=== PATIENT | male | born 1945 | race Caucasian/White ===

== ENCOUNTER 2017-02-27 23:05 | Inpatient (IN) | payer OTHER, BC ==
[~2017-02-27] VITALS: Ht 180.3 cm; Wt 101.6 kg
--- NOTE | ~2017-02-27 | CATHLAB ---
[facility] [address] [place] [address] INVASIVE PROCEDURE REPORT Name: MILTON BROWN Yoel Room #: 218-P [facility] IN ..#: [id number] Admission: 02/27/17 Attend Phys: Lorene Grimes Discharge: Date of : 47 Date of Service: 03/02/17 0935 Report #: [id number] THIS REPORT FOR: //name// APPROVED REPORT Patient Details Patient Status: In-Patient Room #: The patient is a 71 year-old male Event Personnel Clare Jerez RN Pressing Machine Tender, Reid Canas RN Monitor, Simone Villegas Monitor, Pj Ambrocio, Priyank De Leon Store Protection Specialist Procedures Performed Art Access - R femoral artery* NICOLASA Place w/wo Plasty Single Left Main [id number] , Right transradial approach Indication Unstable angina , The patient just had a cardiac catheterization revealing a severe left main stenosis. During the diagnostic cardiac catheterization, he remained clinically stable with no anginal symptoms. The plan was to undergo CABG, wait a few days as he had been taking Plavix on a daily basis. In the ICU, he reported severe chest discomfort on medical therapy including heparin, IV nitroglycerin, beta galen. Given the change in his clinical symptoms, the plan was to proceed with coronary angioplasty on the left main artery stenosis. Previous Procedures/Diagnoses Previous PCI Procedure Narrative The patient was brought emergently to the Cardiac Catheterization Laboratory and was prepped and draped in a sterile manner. The RFG^ was infiltrated with 1% Lidocaine subcutaneous anesthesia. A PINNACLE 6FR Sheath #[id number] sheath was inserted into the . Coronary angiography was performed using coronary diagnostic catheters. The left coronary system was accessed and visualized with a VISTA 6FR JL3.5 #[id number] catheter. The patient tolerated the procedure well and there were no complications associated with the procedure. There was no hematoma. Intraoperative Conscious Sedation Sedation start time: 316 Case end Time: [address] [address] INVASIVE PROCEDURE REPORT Name: MILTON BROWN Room #: 218-P [facility] IN [facility].#: [id number] Admission: 02/27/17 Attend Phys: Lorene Grimes Discharge: Date of : 47 Date of Service: 03/02/17 0935 Report #: [id number] Fluoro Time: 12.30 minutes Dose: DAP 85686.82 cGycm2 2753 mGy Contrast Type and Amount: Visipaque 190 ml Hemodynamics The aortic pressure is 129/74 mmHg with a mean of 94 mmHg. PCI Technique Lesion Anticoagulation was achieved with Angiomax. Patient was preloaded with Effient PO 60 mg. Percutaneous coronary intervention was performed on the LM. The lesion stenosis prior to intervention was 95% with BREANNA 3 flow. A VISTA 6FR JL3.5 #[id number] Guide Catheter was used to engage the LCA ostium. A Luge Wire .014 x 182CM #[id number] Interventional Guidewire was used to cross the lesion. BALLOON DILATION A Balloon catheter TREK RX 3.0 X 12 #[id number] was inserted and inflated up to 10.00atm for 6seconds. Additional Inflation: 10.00atm for 7seconds. STENT DEPLOYMENT A drug-eluting stent RESOLUTE RX 3.5 X 12 #[id number] was inserted and inflated up to 16.00atm for 10seconds. Additional Inflation: 18.00atm for 6seconds. POST STENT DEPLOYMENT BALLOON DILATION A Balloon catheter Euphora NC RX 4.0 x 12 #[id number] was inserted and inflated up to 18.00atm for 6seconds. Final angiography reveals 0 % stenosis with BREANNA 3 flow. Conclusion Successful insertion of a drug-eluting stent into the left main artery stenosis. The patient tolerated the procedure without any complications. Recommendations Cardiac Rehabilitation Referral Aggressive Medical Therapy <ELECTRONICALLY SIGNED> By: Priyank De Leon MD 03/02/17934 4 4 Priyank De Leon MD /INF
--- NOTE | ~2017-02-27 | EKG ---
[address] [place] [address] ELECTROCARDIOGRAM REPORT Name: MILTON BROWN Yoel Room #: 239-P ADM IN M.R.#: [id number] Admission: 02/27/17 Attend Phys: Lorene Chaudhry Discharge: Date of : 47 Report #: [id number] THIS REPORT FOR: //name// [facility] Test Date: 2017-02-28 Test Time: 07:23:01 Pat Name: MILTON BROWN Department: Room: 239 Gender: M Grab Jack Worker: camilo : 1945 Requested By: Priyank De Leon Order Number: [id number] MD: Priyank De Leon Measurements Intervals [place] Rate: 59 P: 15 MD: 205 QRS: -45 QRSD: 122 T: 160 QT: 410 QTc: 407 Interpretive Statements Sinus rhythm Atrial premature complexes RBBB nonspecific ST segment abnormalities Compared to ECG 02/27/2017 23:18:52 ST segment abnormalities have resolved Electronically Signed On 02-28-2017 11:01:21 CDT by Priyank De Leon [email or web address] <ELECTRONICALLY SIGNED> By: Priyank De Leon MD 02/28/17 1101 0723 07 Priyank De Leon MD /JONATHAN
--- NOTE | ~2017-02-27 | EKG ---
[place] [address] [facility] [place] [address] ELECTROCARDIOGRAM REPORT Name: PEDRITO BROWNJOHNNY Diallo Room #: 239-P ADM IN M.R.#: [id number] Admission: 02/27/17 Attend Phys: Lorene Chaudhry Discharge: Date of : 47 Report #: [id number] THIS REPORT FOR: //name// [facility] ED Test Date: 2017-02-27 Test Time: 23:18:52 Pat Name: MILTON BROWN Department: Room: 239 Gender: M Leather Flesher: : 1945 Requested By: Pernell Russell Order Number: [id number] MD: Priyank De Leon Measurements Intervals [place] Rate: 75 P: 30 MA: 203 QRS: 248 QRSD: 137 T: 160 QT: 343 QTc: 383 Interpretive Statements Sinus rhythm Nonspecific IVCD with LAD Repol abnrm, severe global ischemia (LM/MVD) Baseline wander in lead(s) I,II,III,aVR,aVL,aVF,V2,V3,V4,V5,V6 Missing lead(s): V1 Compared to ECG 09/19/2015 08:07:06 Intraventricular conduction delay now present Early repolarization now present Possible ischemia now present T-wave abnormality no longer present Electronically Signed On 02-28-2017 2:13:41 CDT by Priyank De Leon [email or web address] <ELECTRONICALLY SIGNED> By: Priyank De Leon MD 02/28/17 0213 231 Priyank D eLeon MD /EPI
--- NOTE | ~2017-02-27 | EKG ---
"[place] [address] [address] [facility] [place] [address] ELECTROCARDIOGRAM REPORT Name: MILTON BROWN Yoel Room #: 218-P ADM IN M.R.#: [id number] Admission: 02/27/17 Attend Phys: Lorene Chaudhry Discharge: Date of : 47 Report #: [id number] THIS REPORT FOR: //name// [facility] Test Date: 2017-03-01 Test Time: 08:51:18 Pat Name: MILTON BROWN Department: Room: 218 P Gender: M Cleaner Laboratory Equipment: pérez : 1945 Requested By: Priyank De Leon Order Number: [id number] MD: Jesse Paulson Measurements Intervals [place] Rate: 64 P: 13 LA: 173 QRS: -59 QRSD: 134 T: 4 QT: 435 QTc: 449 Interpretive Statements Sinus rhythm RBBB and LAFB Borderline ST depression, lateral leads Baseline wander in lead(s) V4 Compared to ECG 02/28/2017 07:23:01 No significant changes found Electronically Signed On 03-02-2017 8:39:01 CDT by Jesse Paulson [email or web address] <ELECTRONICALLY SIGNED> By: Jesse Paulson MD, [facility] 03/02/17 0839 0851 0851 Jesse Paulson MD, [facility] /EPI"
--- NOTE | ~2017-02-27 | CATHLAB ---
[facility] [address] [place] [address] INVASIVE PROCEDURE REPORT Name: MILTON BROWN Yoel Room #: 218-P [facility] IN [facility].#: [id number] Admission: 02/27/17 Attend Phys: Lorene Grimes Discharge: Date of : 47 Date of Service: 03/02/17926 Report #: [id number] THIS REPORT FOR: //name// ADDENDUM APPROVED REPORT Patient Details Patient Status: Out-Patient Room #: The patient is a 71 year-old male Event Personnel Clare Jerez RN Camera Repairer, Pj Ambrocio, Simone Villegas Monitor, Reid Canas RN Monitor, Priyank De Leon Sewer Pipe Sorter Procedures Performed Art Access - R femoral artery* Left Heart Cath w/or w/o Coronaries [id number] [facility] Indication Non-STEMI , Unstable angina Risk Factors Hypercholesterolemia, Coronary Artery DiseaseHypertension, Diabetes Procedure Narrative The patient was brought emergently to the Cardiac Catheterization Laboratory and was prepped and draped in a sterile manner. The right femoral was infiltrated with 1% Lidocaine subcutaneous anesthesia. A PINNACLE 6FR Sheath #[id number] sheath was inserted into the RFA^. Coronary angiography was performed using coronary diagnostic catheters. The right coronary system was accessed and visualized with a JR 4 catheter. The left coronary system was accessed and visualized with a JL4 catheter. The left ventricle was accessed and visualized with a Pigtail catheter. Left ventricular/Aortic Valve gradient assessed via catheter pullback. Left ventriculogram was performed in 30 degree projection. The patient tolerated the procedure well and there were no complications associated with the procedure. There was no hematoma. Intraoperative Conscious Sedation Sedation start time: 11 Case end Time: 38 Fluoro Time: 3.20 minutes Dose: DAP 5329.72 cGycm2 702 mGy Contrast Type and Amount: Visipaque 85 ml [facility] [place] [address] INVASIVE PROCEDURE REPORT Name: MILTON BROWN Room #: 218-P [facility] IN ..#: [id number] Admission: 02/27/17 Attend Phys: Lorene Grimes Discharge: Date of : 47 Date of Service: 03/02/17 0927 Report #: [id number] Coronary Angiography The patient's coronary anatomy is co- dominant. [place] Artery Percent Stenosis Left Main: 95 % Prox LAD: 30 % Mid/Distal LAD: % Circumflex: % RCA: 30 % Ramus: % Diagnostic Cath OM1 60% ostial Hemodynamics The aortic pressure is 117/75 mmHg with a mean of 93 mmHg. The left ventricular pressure is 108/9 mmHg with a mean of mmHg. The left ventricular end diastolic pressure is 15 mmHg. There was no gradient across the aortic valve upon pullback. Pullback from the left ventricle to the aorta revealed no gradient across the aortic valve. Conclusion Severe LM stenosis Recommend CV surgery consult. Recommendations CABG <ELECTRONICALLY SIGNED> By: Priyank De Leon MD 03/02/17926 6 6 Priyank De Leon MD /INF
--- NOTE | ~2017-02-27 | EKG ---
[address] [place] [address] ELECTROCARDIOGRAM REPORT Name: MILTON BROWN Room #: 218-P ADM IN M.R.#: [id number] Admission: 02/27/17 Attend Phys: Lorene Chaudhry Discharge: Date of : 47 Report #: [id number] THIS REPORT FOR: //name// [facility] Test Date: 2017-02-28 Test Time: 01:30:23 Pat Name: MILTON BROWN Department: Room: 218 Gender: M It Operations Specialist: erik : 1945 Requested By: Lorene Chaudhry Order Number: [id number] MD: Jesse Paulson Measurements Intervals [place] Rate: 65 P: 27 UT: 193 QRS: -67 QRSD: 137 T: 152 QT: 392 QTc: 408 Interpretive Statements Sinus rhythm RBBB and LAFB Abnormal T, consider ischemia, lateral leads when compared with an ECG dated February 27, no significant change was found Electronically Signed On 03-02-2017 7:57:18 CDT by Jesse Paulson [email or web address] <ELECTRONICALLY SIGNED> By: Jesse Paulson MD, [facility] 03/02/17 0757 0130 0130 Jesse Paulson MD, [facility] /EPI
[~2017-02-27 23:05] MED LIST: AMLODIPINE BESY10 MG PO; ASPIRIN325 PO; ATORVASTATIN CA40 MG PO; COLACE100 MG PO; EYE DROP TEARS15 ML OP; HUMALOG KW200 UNIT/1 SUBQ; LANTUS SOL100 UNIT/1 SUBQ; LOSARTAN-HCTZ1 EAC3 PO; LUTEIN20 MG PO; METFORMIN HCL500 MG PO; PLAVIX 75 MG TA75 M1 PO; PROLENSA1.6 ML OP; PROTONIX40 M1 PO; TENORMIN50 MG PO; TYLENOL325 MG PO
[2017-02-27 23:06] VITALS: BP 133/95
[2017-02-27 23:20] LABS: ABSOLUTE NEUTROPHILS 6.9 thou/uL (1.4-8.2); BASOPHILS 0.5 % (0.0-2.0); HEMATOCRIT 42.3 % (42.0-52.0); HEMOGLOBIN 14.8 gm/dL (14.0-18.0); LYMPHOCYTES 12.2 % (24.0-44.0); MCH 31.7 pg (26.0-34.0); MCHC 35.1 g/dL (28.0-37.0); MCV 90.3 fL (80.0-100.0); PLATELET COUNT 200 thou/uL (150-400); POLYS 77.3 % (36.0-66.0); RBC 4.68 mil/uL (4.50-6.00); RDW 14.5 % (10.5-14.5); WBC 8.9 thou/uL (4.0-11.0)
[2017-02-27 23:24] LABS: MANUAL DIFF NO
[2017-02-27] MEDS ORDERED: CRESTOR10 MG PO (23:28)
[2017-02-27 23:30] LABS: CREATININE 1.7 mg/dL (0.7-1.3)
[2017-02-27] MEDS ORDERED: COZAAR 50 MG TA50 M2 PO (23:30)
[2017-02-27] MEDS ORDERED: LASIX 20 MG TAB20 MG PO (23:31)
[2017-02-27] MEDS ORDERED: VIAGRA100 MG PO (23:32)
[2017-02-27] MEDS ORDERED: PROLENSA1.6 ML (23:33)
[2017-02-27] MEDS ORDERED: PROTONIX40 M1 PO (23:34)
[2017-02-27 23:37] LABS: APTT 51.6 Seconds (24.5-32.8); INR 1.1; PROTIME 11.3 Seconds (9.3-11.4)
[2017-02-27 23:38] LABS: TROPONIN-I 0.29 ng/mL (<0.04-0.07)
[2017-02-28] VITALS (21 sets, daily range): BP systolic 103–145; BP diastolic 66–97
[2017-02-28 01:56] LABS: MAGNESIUM 1.2 mg/dL (1.8-2.4)
[2017-02-28 02:00] LABS: TROPONIN-I 1.41 ng/mL (<0.04-0.07)
[2017-03-01 04:44] VITALS: BP 148/84
[2017-03-01 07:01] LABS: HEMATOCRIT 40.5 % (42.0-52.0); HEMOGLOBIN 14.1 gm/dL (14.0-18.0); MCH 31.5 pg (26.0-34.0); MCHC 34.9 g/dL (28.0-37.0); MCV 90.3 fL (80.0-100.0); RBC 4.48 mil/uL (4.50-6.00); RDW 14.2 % (10.5-14.5)
[2017-03-01 07:17] VITALS: BP 138/88
[2017-03-01 07:18] LABS: CALCIUM 9.1 mg/dL (8.5-10.1); CREATININE 1.1 mg/dL (0.7-1.3); PHOSPHORUS 2.8 mg/dL (2.5-4.9); POTASSIUM 4.1 mmol/L (3.5-5.1)
[2017-03-01 07:19] LABS: TROPONIN-I 4.3 ng/mL (<0.04-0.07)
[2017-03-01] MEDS ORDERED: EFFIENT10 MG PO (10:24)
[2017-03-01] MEDS ORDERED: METOPROLOL SUCC50 MG PO (10:25)
[2017-03-01] MEDS ORDERED: LISINOPRIL5 MG PO (10:33)
[2017-03-01 11:57] VITALS: BP 143/90
[2017-03-01 16:06] VITALS: BP 130/79
[2017-03-01 20:15] VITALS: BP 150/82
[2017-03-02 04:23] VITALS: BP 136/78
[2017-03-02 07:51] VITALS: BP 149/79
[2017-03-02 08:19] VITALS: BP 149/79
[2017-03-02] MEDS ORDERED: ATORVASTATIN CA40 MG PO (11:01)
[2017-03-02] MEDS ORDERED: COZAAR 50 MG TA50 M2 PO (11:01)
[2017-03-02 11:58] VITALS: BP 142/82
[2017-03-02 13:09] VITALS: BP 149/79
== END 2017-03-02 13:11 | disposition home or self-care (01) | DRG 246 ==
LOC: ER 23:05 → EROBS 23:32 → 2N 23:32 → ICU 02-28 00:55 → 2N 02-28 17:33
PROVIDERS: Emergency Medicine; Internal Medicine Cardiovascular Disease
PROC: 027034Z Dilation of Coronary Artery, One Artery with Drug-eluting Intraluminal Device, Percutaneous Approach (ICD-10-PCS; principal; 2017-03-02)
PROC: B2111ZZ Fluoroscopy of Multiple Coronary Arteries using Low Osmolar Contrast (ICD-10-PCS; 2017-03-02)
PROC: 4A023N7 Measurement of Cardiac Sampling and Pressure, Left Heart, Percutaneous Approach (ICD-10-PCS; 2017-03-02)
DX: I21.3 ST elevation (STEMI) myocardial infarction of unspecified site (principal); N17.0 Acute kidney failure with tubular necrosis; E78.5 Hyperlipidemia, unspecified; E83.42 Hypomagnesemia; E78.00 Pure hypercholesterolemia, unspecified; N18.9 Chronic kidney disease, unspecified; E11.22 Type 2 diabetes mellitus with diabetic chronic kidney disease; I12.9 Hypertensive chronic kidney disease with stage 1 through stage 4 chronic kidney disease, or unspecified chronic kidney disease; I24.9 Acute ischemic heart disease, unspecified; I48.0 Paroxysmal atrial fibrillation; Z86.73 Personal history of transient ischemic attack (TIA), and cerebral infarction without residual deficits; Z79.899 Other long term (current) drug therapy; Z95.5 Presence of coronary angioplasty implant and graft; Z87.891 Personal history of nicotine dependence
CPT/HCPCS: 10081

== ENCOUNTER → 2017-06-15 | Outpatient (CLI) | payer OTHER, BC ==
[~2017-06-15] MED LIST changes: +COZAAR 50 MG TA50 M2 PO; +CRESTOR10 MG PO; +EFFIENT10 MG PO; +LASIX 20 MG TAB20 MG PO; +LISINOPRIL5 MG PO; +METOPROLOL SUCC50 MG PO; +PROLENSA1.6 ML; +VIAGRA100 MG PO
--- NOTE | ~2017-06-15 | 2DMMODE ---
[facility] [address] [place] [address] 2 D/M-MODE ECHOCARDIOGRAM Name: KEVINMILTON LUIS ALBERTO Room #: REG [facility]#: [id number] Admission: 06/15/17 Attend Phys: Priyank De Leon MD Discharge: Date of : 47 Date of Service: 06/15/17 1023 Report #: [id number] THIS REPORT FOR: //name// APPROVED REPORT Study performed: 06/15/2017 08:46:37 EXAM: Comprehensive 2D, Doppler, and color-flow Echocardiogram Patient Location: Out-Patient Room #: Echo lab Status: routine BSA: 2.17 HR: 58 bpm BP: 146/84 mmHg Other Information Study Quality: Adequate Indications Diabetes CAD Hypertension/HDD 2D Dimensions RVDd: 34.30 mm LVEF(%): 44.01 (>50%) IVSd: 12.99 (7-11mm) LVOT Diam: 22.46 (18-24mm) LVDd: 54.03 mm PWd: 12.19 (7-11mm) Ascending Ao: 27.14 (22-36mm) LVDs: 42.15 (25-40mm) Aortic Root: 30.02 mm Harper's LVEF: 44.01 % Volumes Left Atrial Volume (Systole) Single Plane 4CH: 64.13 mL Single Plane 2CH: 47.29 mL LA ESV Index: 29.00 mL/m2 Aortic Valve AoV Peak Erwin.: 1.30 m/s AO Peak Gr.: 6.80 mmHg LVOT Max P.70 mmHg LVOT Max V: 0.96 m/s SILVANO Vmax: 2.92 cm2 Mitral Valve [facility] [address] [place] [address] 2 D/M-MODE ECHOCARDIOGRAM Name: KEVINMILTON LUIS ALBERTO Room #: REG CL [facility]#: [id number] Admission: 06/15/17 Attend Phys: Priyank De Leon MD Discharge: Date of : 47 Date of Service: 06/15/17 1023 Report #: [id number] E/A Ratio: 1.1 MV Decel. Time: 209.83 ms MV E Max Erwin.: 0.89 m/s MV A Erwin.: 0.84 m/s MV PHT: 60.85 ms IVRT: 110.73 ms Pulmonary Valve PV Peak Erwin.: 0.97 m/s PV Peak Gr.: 3.79 mmHg Pulmonary Vein P Vein S: 0.53 m/s P Vein A: 0.26 m/s P Vein D: 0.50 m/s P Vein A Dur.: 124.6 msec P Vein S/D Ratio: 1.06 Left Ventricle The left ventricle is normal size. Mild concentric left ventricular hypertrophy. Left ventricular systolic function is normal. LVEF is 55-60%. Grade II - pseudonormal filling dynamics. Right Ventricle The right ventricle is normal size. The right ventricular systolic function is normal. Atria Left atrium is at the upper limits of normal. The right atrium size is normal. Aortic Valve The Aortic valve is sclerotic. No aortic regurgitation is present. There is no aortic valvular stenosis. Mitral Valve The mitral valve is normal in structure. Mild mitral regurgitation. No evidence of mitral valve stenosis. Tricuspid Valve The tricuspid valve is normal in structure. There is no pulmonary hypertension. There is no tricuspid valve regurgitation noted. Pulmonic Valve The pulmonary valve is normal in structure. Trace pulmonic regurgitation. Great Vessels [facility] [address] [place] [address] 2 D/M-MODE ECHOCARDIOGRAM Name: MILTON BROWN LUIS ALBERTO Room #: REG [facility]#: [id number] Admission: 06/15/17 Attend Phys: Priyank De Leon MD Discharge: Date of : 47 Date of Service: 06/15/17 1023 Report #: [id number] The aortic root is normal in size. IVC is not well visualized but appears normal. Pericardium There is no pericardial effusion. <Conclusion> The left ventricle is normal size. Mild concentric left ventricular hypertrophy. Left ventricular systolic function is normal. The right ventricle is normal size. The Aortic valve is sclerotic. Mild mitral regurgitation. There is no pericardial effusion. <ELECTRONICALLY SIGNED> By: Priyank De Leon MD 06/15/17 1023 1023 1023 Priyank De Leon MD /INF
== END ==
LOC: CV 07:30
DX: I25.10 Atherosclerotic heart disease of native coronary artery without angina pectoris (principal); I10 Essential (primary) hypertension; E11.9 Type 2 diabetes mellitus without complications

== ENCOUNTER → 2018-06-14 | Outpatient (CLI) | payer OTHER, BC ==
--- NOTE | ~2018-06-14 | 2DMMODE ---
[facility] [place] [address] 2 D/M-MODE ECHOCARDIOGRAM Name: KEVINMILTON LUIS ALBERTO Room #: REG [facility]#: [id number] Admission: 06/14/18 Attend Phys: Priyank De Leon MD Discharge: Date of : 47 Date of Service: 06/14/18 1042 Report #: [id number] THIS REPORT FOR: //name// APPROVED REPORT Study performed: 06/14/2018 09:04:43 EXAM: Comprehensive 2D, Doppler, and color-flow Echocardiogram Patient Location: Out-Patient Room #: Echo lab 2 Status: routine BSA: 2.17 HR: 62 bpm BP: 142/72 mmHg Rhythm: NSR Other Information Study Quality: Good Indications CVA/TIA Diabetes CAD Hypertension/HDD Echo Enhancing Agent Indication: Rule out Shunt Agent(s) / Amount(s) Used: Agitated Saline 7 cc 2D Dimensions RVDd: 36.74 mm IVSd: 10.73 (7-11mm) LVOT Diam: 22.51 (18-24mm) LVDd: 57.10 mm PWd: 11.43 (7-11mm) Ascending Ao: 34.40 (22-36mm) LVDs: 42.54 (25-40mm) Aortic Root: 31.36 mm IVC: 19.00 mm Volumes Left Atrial Volume (Systole) Single Plane 4CH: 75.40 mL Single Plane 2CH: 64.08 mL LA ESV Index: 37.00 mL/m2 Aortic Valve AoV Peak Erwin.: 1.58 m/s AO Peak Gr.: 9.95 mmHg LVOT Max P.23 mmHg [facility] [address] [place] [address] 2 D/M-MODE ECHOCARDIOGRAM Name: MILTON BROWN LUIS ALBERTO Room #: REG CL [facility]#: [id number] Admission: 06/14/18 Attend Phys: Priyank De Leon MD Discharge: Date of : 47 Date of Service: 06/14/18 1042 Report #: [id number] LVOT Max V: 1.14 m/s SILVANO Vmax: 2.88 cm2 Mitral Valve E/A Ratio: 1.2 MV Decel. Time: 198.57 ms MV E Max Erwin.: 1.11 m/s MV A Erwin.: 0.93 m/s MV PHT: 57.58 ms IVRT: 96.89 ms Pulmonary Valve PV Peak Erwin.: 1.10 m/s PV Peak Gr.: 4.80 mmHg Pulmonary Vein P Vein S: 0.58 m/s P Vein A: 0.26 m/s P Vein D: 0.56 m/s P Vein A Dur.: 101.5 msec P Vein S/D Ratio: 1.04 Tricuspid Valve TR Peak Erwin.: 3.08 m/s TR Peak Gr.: 37.89 mmHg PA Pressure: 42.00 mmHg Left Ventricle The left ventricle is normal size. There is normal left ventricular wall thickness. The left ventricular systolic function is normal. The left ventricular ejection fraction is within the normal range. LVEF is 50-55%. Grade II - pseudonormal filling dynamics. Right Ventricle The right ventricle is normal size. The right ventricular systolic function is normal. Atria Left atrium is dilated. Interatrial septum is intact without evidence of ASD or PFO. Right atrium is at the upper limits of normal. Aortic Valve The aortic valve is normal in structure. No aortic regurgitation is present. There is no aortic valvular stenosis. Mitral Valve The mitral valve is normal in structure. Mild mitral regurgitation. No evidence of mitral valve stenosis. [address] [address] 2 D/M-MODE ECHOCARDIOGRAM Name: PEDRITO BROWNVILLE LUIS ALBERTO Room #: REG CL [facility]#: [id number] Admission: 06/14/18 Attend Phys: Priyank De Leon MD Discharge: Date of : 47 Date of Service: 06/14/18 1042 Report #: [id number] Tricuspid Valve The tricuspid valve is normal in structure. There is trace tricuspid regurgitation. Estimated PAP 42 mmHg. There is mild-moderate pulmonary hypertension. Pulmonic Valve The pulmonary valve is normal in structure. Trace pulmonic regurgitation. Great Vessels The aortic root is normal in size. IVC is normal in size and collapses >50% with inspiration. Pericardium There is no pericardial effusion. <Conclusion> The left ventricle is normal size. There is normal left ventricular wall thickness. The left ventricular systolic function is normal. Grade II - pseudonormal filling dynamics. Left atrium is dilated. Interatrial septum is intact without evidence of ASD or PFO. The aortic valve is normal in structure. Mild mitral regurgitation. There is trace tricuspid regurgitation. Estimated PAP 42 mmHg. <ELECTRONICALLY SIGNED> By: Priyank De Leon MD 06/14/18 104 41 41 Priyank De Leon MD /INF
== END ==
LOC: CV 08:46
DX: I34.0 Nonrheumatic mitral (valve) insufficiency (principal); I10 Essential (primary) hypertension; E11.9 Type 2 diabetes mellitus without complications; I25.10 Atherosclerotic heart disease of native coronary artery without angina pectoris; G45.9 Transient cerebral ischemic attack, unspecified; I63.00 Cerebral infarction due to thrombosis of unspecified precerebral artery; I27.20 Pulmonary hypertension, unspecified

== ENCOUNTER → 2018-06-17 | Outpatient (CLI) | payer OTHER, BC ==
[2018-06-17 12:39] LABS: CALCIUM 9.4 mg/dL (8.5-10.1); CREATININE 1.8 mg/dL (0.7-1.3); POTASSIUM 4.4 mmol/L (3.5-5.1)
== END ==
LOC: CAT 11:52
PROVIDERS: Internal Medicine Pulmonary Disease
DX: I12.9 Hypertensive chronic kidney disease with stage 1 through stage 4 chronic kidney disease, or unspecified chronic kidney disease (principal); N18.3 Chronic kidney disease, stage 3 (moderate); I25.10 Atherosclerotic heart disease of native coronary artery without angina pectoris; Q27.30 Arteriovenous malformation, site unspecified; E11.22 Type 2 diabetes mellitus with diabetic chronic kidney disease; E78.5 Hyperlipidemia, unspecified

== ENCOUNTER → 2018-07-12 | Outpatient (CLI) | payer OTHER, BC | LOC: NUC 07:12 | DX: I25.10 Atherosclerotic heart disease of native coronary artery without angina pectoris (principal); I10 Essential (primary) hypertension; E11.9 Type 2 diabetes mellitus without complications; E78.5 Hyperlipidemia, unspecified; E66.9 Obesity, unspecified; Z87.891 Personal history of nicotine dependence; Z79.4 Long term (current) use of insulin ==

== ENCOUNTER → 2018-12-31 | Outpatient (CLI) | payer OTHER, BC | LOC: CAT 11:05 | DX: J84.10 Pulmonary fibrosis, unspecified (principal); J98.4 Other disorders of lung; I25.10 Atherosclerotic heart disease of native coronary artery without angina pectoris; Z88.8 Allergy status to other drugs, medicaments and biological substances ==

== ENCOUNTER → 2019-06-16 | Outpatient (CLI) | payer OTHER, BC | LOC: CAT 10:30 | DX: J84.10 Pulmonary fibrosis, unspecified (principal); J44.9 Chronic obstructive pulmonary disease, unspecified; R91.1 Solitary pulmonary nodule; K44.9 Diaphragmatic hernia without obstruction or gangrene; Z88.8 Allergy status to other drugs, medicaments and biological substances ==

== ENCOUNTER → 2020-02-03 | Outpatient (CLI) | payer OTHER, BC ==
[~2020-02-03] MED LIST changes: +B-COMPLEX WITH1 EACH PO; +BASAGLAR K100 UNIT/1 SUBQ; +COQ-10100 MG PO; +COUGH DM30 MG/5 ML PO; +HYDRALAZINE HC100 MG PO; +MAGNESIUM250 M1 PO; +MELATONIN10 M3 PO; +NORVASC 2.5 MG2.5 M1 PO; +PLAVIX 75 MG TA75 MG PO; +REPATHA SU140 MG/1 M; +TRAZODONE HCL50 MG PO; +TYLENOL ARTHRI650 MG PO; +ULTRAM 50MG TAB50 MG PO; +[UNRECOGNIZED DRUG - OTHER] PO
== END ==
LOC: SJCVCIMAG 08:02
PROVIDERS: ATTEND Internal Medicine Cardiovascular Disease
DX: I25.10 Atherosclerotic heart disease of native coronary artery without angina pectoris (principal); I45.10 Unspecified right bundle-branch block; I44.0 Atrioventricular block, first degree; I10 Essential (primary) hypertension; E78.00 Pure hypercholesterolemia, unspecified; R60.9 Edema, unspecified; E78.5 Hyperlipidemia, unspecified; I25.2 Old myocardial infarction; Z79.82 Long term (current) use of aspirin; Z88.8 Allergy status to other drugs, medicaments and biological substances; Z79.899 Other long term (current) drug therapy; Z87.891 Personal history of nicotine dependence; Z86.73 Personal history of transient ischemic attack (TIA), and cerebral infarction without residual deficits

== ENCOUNTER 2020-02-13 19:57 | Inpatient (IN) | payer OTHER, BC ==
[~2020-02-13] VITALS: Ht 180.3 cm; Wt 100.2 kg
[2020-02-13 23:40] VITALS: BP 144/76
--- NOTE | 2020-02-14 03:25 | NUR ---
PT WAS DIRECT ADMIT FROM [facility], ARRIVED AROUND 2129, PT IS AWAKE, ALERT AND ORIENTEDX4, MAKES NEEDS KNOWN, DENIES CHEST PAIN OR SOB, NIH SCALE O ON ADMISSION, SINUS ON THE MONITOR, GROIN SITE CDI NO HEMATOMA, PT IS STABLE AND SLEEPING, NO DISTRESS NOTED, WILL CONTINUE TO MONITOR
--- NOTE | 2020-02-14 04:43 | NUR ---
PT RESTING IN BED, NO DISTRESS NOTED, ASESSMENTS CHARTED, VSS, NIH SCALE OF 0,WILL CONTINUE TO MONITOR
[2020-02-14 04:54] VITALS: BP 155/72
[2020-02-14 05:38] LABS: ABSOLUTE NEUTROPHILS 3.3 thou/uL (1.4-8.2); BASOPHILS 0.4 % (0.0-2.0); EOSINOPHILS 1.3 % (0.0-3.0); HEMATOCRIT 36.8 % (42.0-52.0); HEMOGLOBIN 12.7 gm/dL (14.0-18.0); LYMPHOCYTES 26.5 % (24.0-44.0); MCHC 34.5 g/dL (28.0-37.0); MCV 95.6 fL (80.0-100.0); PLATELET COUNT 143 thou/uL (150-400); POLYS 62.8 % (36.0-66.0); RBC 3.85 mil/uL (4.50-6.00); RDW 13.5 % (10.5-14.5); WBC 5.2 thou/uL (4.0-11.0)
[2020-02-14 06:02] LABS: CALCIUM 8.1 mg/dL (8.5-10.1); CREATININE 1.3 mg/dL (0.7-1.3); MAGNESIUM 1.8 mg/dL (1.8-2.4); POTASSIUM 4.2 mmol/L (3.5-5.1)
[2020-02-14 08:00] VITALS: BP 138/69
--- NOTE | 2020-02-14 08:50 | EKG ---
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 : 1945 Requested By: Lisa Bowens Order Number: [id number] MD: Jesse Paulson Measurements Intervals Sedan Rate: 49 P: 7 NJ: 237 QRS: -44 QRSD: 134 T: 130 QT: 448 QTc: 405 Interpretive Statements Sinus bradycardia Prolonged NJ interval RBBB and LAFB Abnormal T, consider ischemia, lateral leads Compared to ECG 03/01/2017 08:51:18 Premature ventricular complexes are no longer present Electronically Signed On 02-14-2020 8:49:52 CDT by Jesse Paulson [email or web address] <ELECTRONICALLY SIGNED> By: Jesse Paulson MD, [facility] 02/14/20 0849 1 1 Jesse Paulson MD, [facility] /EPI
--- NOTE | 2020-02-14 10:19 | 2DMMODE ---
[facility] [place] [address] 2 D/M-MODE ECHOCARDIOGRAM Name: MILTON BROWN Room #: 210-P ADM IN M.R.#: [id number] Admission: 02/13/20 Attend Phys: Ronn Nunez MD Discharge: Date of : 47 Report #: [id number] THIS REPORT FOR: cc: Triston Law MD, Alberto MD Park, Jin S. MD ~ APPROVED REPORT Study performed: 02/14/2020 09:01:55 EXAM: Comprehensive 2D, Doppler, and color-flow Echocardiogram Patient Location: Bedside Room #: 210 Status: routine BSA: 2.20 HR: 52 bpm BP: 155/72 mmHg Rhythm: NSR Other Information Study Quality: Adequate Indications Hx: CAD, stents, CVA, HTN, HLP, DM. Pre-Op CABG. 2D Dimensions RVDd: 34.43 mm IVSd: 12.00 (7-11mm) LVOT Diam: 22.00 (18-24mm) LVDd: 57.00 mm PWd: 12.00 (7-11mm) Ascending Ao: 35.26 (22-36mm) LVDs: 46.22 (25-40mm) Aortic Root: 39.39 mm Volumes Left Atrial Volume (Systole) Single Plane 4CH: 76.22 mL Single Plane 2CH: 66.28 mL LA ESV Index: 36.00 mL/m2 Aortic Valve AoV Peak Erwin.: 1.40 m/s AO Peak Gr.: 7.89 mmHg LVOT Max P.77 mmHg LVOT Max V: 0.97 m/s SILVANO Vmax: 2.52 cm2 [facility] [address] [place] [address] 2 D/M-MODE ECHOCARDIOGRAM Name: MILTON BROWN Room #: 210-P [facility]#: [id number] Admission: 02/13/20 Attend Phys: Ronn Nunez MD Discharge: Date of : 47 Report #: [id number] Mitral Valve E/A Ratio: 1.1 MV Decel. Time: 215.32 ms MV E Max Erwin.: 0.90 m/s MV A Erwin.: 0.81 m/s MV PHT: 62.44 ms IVRT: 92.27 ms Pulmonary Valve PV Peak Erwin.: 1.01 m/s PV Peak Gr.: 4.06 mmHg Pulmonary Vein P Vein S: 0.41 m/s P Vein A: 0.30 m/s P Vein D: 0.34 m/s P Vein A Dur.: 161.5 msec P Vein S/D Ratio: 1.21 Tricuspid Valve TR Peak Erwin.: 1.91 m/s TR Peak Gr.: 15.00 mmHg Left Ventricle The left ventricle is normal size. Regional wall motion abnormalities are noted. Mild concentric left ventricular hypertrophy. Left ventricular systolic function is low normal. LVEF is 50%. Moderate diastolic dysfunction is present (pseudonormal filling). Right Ventricle The right ventricle is normal size. The right ventricular systolic function is normal. Atria Left atrium is mildly dilated. The right atrium size is normal. Aortic Valve Aortic valve is mildly calcified. No aortic regurgitation is present. There is no aortic valvular stenosis. Mitral Valve The mitral valve is normal in structure. Mild mitral regurgitation. No evidence of mitral valve stenosis. Tricuspid Valve The tricuspid valve is normal in structure. Trace tricuspid regurgitation. Estimated PAP is 15mmHg plus the right atrial [facility] [address] [address] 2 D/M-MODE ECHOCARDIOGRAM Name: MILTON BROWN Yoel Room #: 210-P ADM IN M.R.#: [id number] Admission: 02/13/20 Attend Phys: Ronn Nunez MD Discharge: Date of : 46 Report #: [id number] pressure. Great Vessels Aortic root is mildly dilated. (3.9cm) The ascending aorta is normal in size. IVC is not well visualized. Pericardium There is no pericardial effusion. <Conclusion> The left ventricle is normal size. Mild concentric left ventricular hypertrophy. Left ventricular systolic function is low normal. Moderate diastolic dysfunction is present (pseudonormal filling). The right ventricle is normal size. Left atrium is mildly dilated. Aortic valve is mildly calcified. Mild mitral regurgitation. Trace tricuspid regurgitation. Estimated PAP is 15mmHg plus the right atrial pressure. <ELECTRONICALLY SIGNED> By: Priyank De Leon MD 02/14/20 1018 1018 1018 Priyank De Leon MD /INF
--- NOTE | 2020-02-14 11:45 | NUR ---
Patient admits with TIA. Sp with patient via phone. 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 Patient able to drive but usu drives. Lives in independent home with . Uses no assistive device for ambulation. Has steps in home and reports no difficulty with steps. PCP Dr Law in [place]. case mgt following for dc planning.
[2020-02-14 12:00] VITALS: BP 159/74
[2020-02-14 15:14] LABS: APTT 27.5 Seconds (24.5-32.8); PROTIME 10.4 Seconds (9.3-11.4)
[2020-02-14 16:00] VITALS: BP 134/75; BP 159/74
[2020-02-14 18:41] LABS: URINE BILIRUBIN NEGATIVE (Negative); URINE BLOOD NEGATIVE (Negative); URINE CLARITY CLEAR; URINE COLOR YELLOW; URINE GLUCOSE-RANDOM* 3+ (Negative); URINE KETONES NEGATIVE (Negative); URINE LEUKOCYTES-REFLEX NEGATIVE (Negative); URINE NITRITE-REFLEX NEGATIVE (Negative); URINE PROTEIN (DIPSTICK) NEGATIVE (Negative); URINE SPECIFIC GRAVITY 1.015 (1.005-1.035); URINE UROBILINOGEN 0.2 E.U./dl (0.2-1.0)
--- NOTE | 2020-02-14 18:49 | NUR ---
ASSUMED CARE APPROX 0700. PT ALERT AND ORIENTED X4. ASSESSMENTS CHARTED AND VSS. PT TO HAVE CABG ON 02/22. IS HESITANT TO SIGN CONSENT. DISCUSSED CONCERNS WITH SPOUSE AT BEDSIDE. REQUESTING MORE EDUCATION. PERRY JENKINS NOTIFIED AND WILL SPEAK TO PT TOMORROW. PT DENIES ACUTE PAIN. ON ROOM AIR W/ NO SIGNS OF RESPIRATORY DISTRESS. SINUS ZINA W/ 1DEGREE AND BBB ON MONITOR. WILL CONTINUE TO MONITOR.
[2020-02-14 19:14] VITALS: BP 163/80
[2020-02-15 01:07] LABS: GLYCOHEMOGLOBIN (HGB A1C) 6.3 % (4.8-5.6)
--- NOTE | 2020-02-15 04:49 | NUR ---
ASSESSMENT DOCUMENTED.A/OX4.VSS.DENIES CHEST PAIN OR ANY ACUTE DISTRESS.SR ON MONITOR.UP W/SBA TO BR.POSSIBLE DISCHARGE TODAY.WILL CONT TO MONITOR PER POC.
[2020-02-15 08:00] VITALS: BP 3154/79
--- NOTE | 2020-02-15 10:00 | NUR ---
ASSUMED CARE APPROX 0700. PT ALERT AND ORIENTED X4. ASSESSMENT CHARTED AND VSS. PT AWAKE IN BED, RESTING COMFORTABLY. PT DENIES ACUTE PAIN. PT DENIES CHEST PAIN. PT ON ROOM AIR WITH NO SIGNS OF DYSPNEA NOTED. PT SPOKE TO CARDIOLOGY AND MARY THIS AM REGARDING UPCOMING CABG. PT WOULD LIKE TO THINK ABOUT HIS DECISION TO PROCEED. AT BEDSIDE.
[2020-02-15 11:36] VITALS: BP 152/75
[2020-02-15 14:26] VITALS: BP 152/75
--- NOTE | 2020-02-22 12:02 | HC ---
[facility] [place] [address] CONSULTATION Name: MILTON BROWN Room #: 210-P [facility] ..#: [id number] Admission: 02/13/20 Attend Phys: Ronn Nunez MD Discharge: 02/15/20 Date of : 47 Report #: [id number] THIS REPORT FOR: cc: Triston Law MD,Triston Champagne,Johan Almonte MD ~ CC: Triston Nunez DATE OF SERVICE: 02/14/2020 HISTORY OF PRESENT ILLNESS: A 74-year-old male patient who was seen by me because he had an episode of speech difficulty. The episode resolved. He had episodes in the past, which have been described as TIA. He was back to the baseline when I saw him. Review of systems indicates that this patient has a history of paroxysmal atrial fibrillation and he has recurrent episodes of TIA. He had been admitted to [facility] in 2018, but that record is not available. REVIEW OF SYSTEMS: Positive for TIA. He has a pretty significant coronary artery disease. Cardiology notes indicate that this patient has a history of atrial fibrillation. He is on a combination of aspirin and Plavix and has been on that since 2018 when he went to [facility]. He does have chronic renal dysfunction with GFR 54 now, but it was as low as 37 at one time. This was a relevant 14-point review of system. PAST MEDICAL HISTORY: Positive for coronary artery disease. FAMILY HISTORY: Unremarkable. SOCIAL HISTORY: The patient has a supportive family and I talked to the daughter. PHYSICAL EXAMINATION: GENERAL: He is alert, responsive, able to follow simple and complex command. He can tell me what month it is, but the family thinks his memory is poor. NEUROLOGIC: His cranial nerve examination and neuromuscular examination appeared to be his baseline. He does not appear to have any speech difficulty. VITAL SIGNS: His blood pressure is 159/74, temperature is 98.9, pulse is 68, but it had gone down to 49 at one time. DIAGNOSTIC DATA: I reviewed his MRI, his MRI does not show any new strokes. His MRA of the head was okay. His carotid Doppler does not show any hemodynamically significant stenosis, but just showed moderate clot. IMPRESSION: This patient appeared to have a TIA, but there is no evidence of a [facility] [address] [place] [address] CONSULTATION Name: MILTON BROWN Yoel Room #: 210-P [facility].#: [id number] Admission: 02/13/20 Attend Phys: Ronn Nunez MD Discharge: 02/15/20 Date of : 47 Report #: [id number] stroke on the brain. If he has a documented paroxysmal atrial fibrillation, then it will be desirable to start this patient on anticoagulation. However, I will defer that to Cardiology. He also needs management of his coronary artery disease. About 50 minutes of time was spent taking care of this patient today and majority of that time was spent counseling and coordinating care. <ELECTRONICALLY SIGNED> By: Johan Champagne MD 02/22/20 1202 1646 1810 Johan Champagne MD /nt
== END 2020-02-15 16:00 | disposition home or self-care (01) | DRG 69 ==
LOC: 2N 19:57
PROVIDERS: Nurse Practitioner Family; Physician Assistant; ADMIT Hospitalist; ATTEND Hospitalist
DX: G45.9 Transient cerebral ischemic attack, unspecified (principal); N17.9 Acute kidney failure, unspecified; I25.10 Atherosclerotic heart disease of native coronary artery without angina pectoris; J84.89 Other specified interstitial pulmonary diseases; J84.10 Pulmonary fibrosis, unspecified; I48.0 Paroxysmal atrial fibrillation; E78.5 Hyperlipidemia, unspecified; E11.22 Type 2 diabetes mellitus with diabetic chronic kidney disease; N18.9 Chronic kidney disease, unspecified; E78.00 Pure hypercholesterolemia, unspecified; M19.90 Unspecified osteoarthritis, unspecified site; K21.9 Gastro-esophageal reflux disease without esophagitis; H35.30 Unspecified macular degeneration; T46.6X5A Adverse effect of antihyperlipidemic and antiarteriosclerotic drugs, initial encounter; K59.00 Constipation, unspecified; N40.0 Benign prostatic hyperplasia without lower urinary tract symptoms; G47.00 Insomnia, unspecified; Z20.828 Contact with and (suspected) exposure to other viral communicable diseases; I12.9 Hypertensive chronic kidney disease with stage 1 through stage 4 chronic kidney disease, or unspecified chronic kidney disease; G47.33 Obstructive sleep apnea (adult) (pediatric); Z87.891 Personal history of nicotine dependence; Y92.89 Other specified places as the place of occurrence of the external cause; Z98.52 Vasectomy status; Z88.8 Allergy status to other drugs, medicaments and biological substances; Z79.82 Long term (current) use of aspirin; Z79.4 Long term (current) use of insulin; Z79.01 Long term (current) use of anticoagulants; Z86.73 Personal history of transient ischemic attack (TIA), and cerebral infarction without residual deficits; I25.2 Old myocardial infarction; Z79.891 Long term (current) use of opiate analgesic; Z79.899 Other long term (current) drug therapy; Z83.3 Family history of diabetes mellitus; Z82.49 Family history of ischemic heart disease and other diseases of the circulatory system
CPT/HCPCS: 10081

== ENCOUNTER → 2020-02-13 | Outpatient (CLI) | payer OTHER, BC ==
[~2020-02-13] VITALS: Ht 180.3 cm; Wt 95.3 kg
[2020-02-13 07:36] LABS: HEMATOCRIT 41.1 % (42.0-52.0); HEMOGLOBIN 14.2 gm/dL (14.0-18.0); MCHC 34.5 g/dL (28.0-37.0); MCV 95.6 fL (80.0-100.0); RBC 4.3 mil/uL (4.50-6.00); RDW 13.6 % (10.5-14.5); WBC 5.5 thou/uL (4.0-11.0)
[2020-02-13 07:46] LABS: CALCIUM 9.2 mg/dL (8.5-10.1); CREATININE 1.6 mg/dL (0.7-1.3); POTASSIUM 4.2 mmol/L (3.5-5.1)
[2020-02-13 07:54] VITALS: BP 119/81
--- NOTE | 2020-02-13 12:59 | CATHLAB ---
[facility] [place] [address] [place] [address] INVASIVE PROCEDURE REPORT Name: MILTON BROWN LUIS ALBERTO Room #: REG [facility]#: [id number] Admission: 02/13/20 Attend Phys: Priyank De Leon MD Discharge: Date of : 47 Report #: [id number] THIS REPORT FOR: cc: Triston Law MD, Alberto MD Park,Priyank Clark MD ~ APPROVED REPORT Study performed: 02/13/2020 10:59:33 Patient Details Patient Status: Out-Patient Room #: The patient is a 74 year-old male Event Personnel Priyank De Leon Dental Laboratory Assistant, Shar Langston RN RN, David Varghese RTR Shania Antonio Ja'net RTR Monitor Procedures Performed Left Heart Cath w/or w/o Coronaries [id number] [facility] Art Access - R femoral artery* 02299 Initial Mod Sed Same Phys/QHP Gr5y [id number] 90049 Mod Sed Same Phys/QHP Ea [id number] Hemostasis with Manual pressure Indication Dyspnea, Positive stress test Risk Factors HypercholesterolemiaPhysical Activity, Coronary Artery DiseaseHypertension, Diabetes Previous Procedures/Diagnoses Previous PCI, Previous NC Procedure Narrative The patient was brought electively to the Cardiac Catheterization Laboratory and was prepped and draped in a sterile manner. The Right Groin^ was infiltrated with 1% Lidocaine subcutaneous anesthesia. A PINNACLE 4FR Sheath #[id number] sheath was inserted into the RFA^. Coronary angiography was performed using coronary diagnostic catheters. The right coronary system was accessed and visualized with a JR4 catheter. The left coronary system was accessed and visualized with a JL3.5 AND JL4 catheter. The left ventricle was accessed and visualized with a JR4 catheter. Left ventriculogram was performed in [place] [address] [place] [address] INVASIVE PROCEDURE REPORT Name: KEVINMILTON LUIS ALBERTO Room #: REG [facility]#: [id number] Admission: 02/13/20 Attend Phys: Priyank De Leon MD Discharge: Date of : 47 Report #: [id number] 30 degree projection. Hemostasis was obtained with manual pressure following sheath removal without any complications. The patient tolerated the procedure well and there were no complications associated with the procedure. There was no hematoma. Intraoperative Conscious Sedation Sedation start time: 11:30 Case end Time: 12:08 Fentanyl 100 mcg Versed 2 mg Fluoro Time: 4.80 minutes Dose: DAP 8329.00 cGycm2 1960 mGy Contrast Type and Amount: Visipaque 55 ml Coronary Angiography The patient's coronary anatomy is co- dominant. Diagnostic Cath Left Main There is a stent in the left main artery, widely patent with minimal restenosis. LAD There is a borderline stenosis at the ostium, 60 to 70%. Within the midsegment, there is a severe discrete stenosis of 75%. Circumflex The left circumflex artery is a codominant vessel with mild disease in the midsegment. OM1 This is a moderate-sized caliber vessel with a severe stenosis at the ostium, 80%. OM2 This is a small caliber vessel, with no flow-limiting lesions. OM3 This is a moderate-sized caliber vessel, patent with no flow-limiting lesions. Right Coronary The RCA is a severe occlusion at the ostium. There is a severe discrete stenosis in the proximal segment, 80%. R PDA This is a patent vessel, with no flow-limiting lesions. Left Ventriculography Left Ventriculography was not performed. Ejection Fraction was 55-60% based off patient's Nuclear Cardiac Stress Test. An LVEDP was measured and there is no gradient across the outflow tract. Hemodynamics The aortic pressure is 154/73 mmHg with a mean of mmHg. The left ventricular pressure is 132/12 mmHg with a mean of mmHg. The left ventricular end diastolic pressure is 24 mmHg. Pullback from the left ventricle to the aorta revealed no gradient across the aortic [facility] [address] [place] [address] INVASIVE PROCEDURE REPORT Name: MILTON BROWN LUIS ALBERTO Room #: REG Claudine#: [id number] Admission: 02/13/20 Attend Phys: Priyank De Leon MD Discharge: Date of : 47 Report #: [id number] valve. Conclusion 1. Severe three-vessel coronary artery disease. 2. There is a patent stent in the left main artery. 3. Normal LV systolic function. 4. Recommend CV surgical consultation. <ELECTRONICALLY SIGNED> By: Priyank De Leon MD 02/13/20 1258 1258 1258 Priyank De Leon MD /INF
--- NOTE | 2020-02-14 08:37 | EKG ---
[facility] [place] [address] ELECTROCARDIOGRAM REPORT Name: MILTON BROWN Room #: REG [facility]#: [id number] Admission: 02/13/20 Attend Phys: Priyank De Leon MD Discharge: Date of : 47 Report #: [id number] THIS REPORT FOR: cc: Triston Law MD, Alberto MD Lundgren,Jesse Sadler MD [facility] ~ THIS REPORT FOR: //name// [facility] Test Date: 2020-02-13 Test Time: 08:07:56 Pat Name: MILTON BROWN Department: Room: Gender: Rn Forensic: [facility] : 1945 Requested By: Priyank De Leon Order Number: [id number] MD: Jesse Paulson Measurements Intervals Doland Rate: 54 P: 37 DE: 232 QRS: -48 QRSD: 145 T: 116 QT: 419 QTc: 398 Interpretive Statements Sinus rhythm Ventricular premature complex Prolonged DE interval RBBB and LAFB Compared to ECG 03/01/2017 08:51:18 Ventricular premature complex(es) now present First degree AV block now present Electronically Signed On 02-14-2020 8:36:20 CDT by Jesse Paulson [email or web address] <ELECTRONICALLY SIGNED> By: Jesse Paulson MD, [facility] 02/14/20 0836 0807 0807 Jesse Paulson MD, [facility] /EPI
--- NOTE | 2020-02-14 20:01 | HC ---
[facility] [place] [address] CONSULTATION Name: MILTON BROWN Room #: REG [facility]#: [id number] Admission: 02/13/20 Attend Phys: Priyank De Leon MD Discharge: Date of : 47 Report #: [id number] THIS REPORT FOR: cc: Triston Law MD, Alberto MD Forman,Raymundo Byrd MD ~ CC: Triston De Leon DATE OF SERVICE: 02/13/2020 We were asked by Dr. De Leon to see the patient. HISTORY OF PRESENT ILLNESS: The patient is a 74-year-old with coronary artery disease. The patient states that he has had increasing fatigue over the last several months. The patient has a stress test recently that was abnormal and this led to cardiac catheterization today. Cardiac catheterization shows important 3-vessel coronary artery disease including 70% LAD, 80% circumflex and 80% coronary stenoses. Left ventricular function is satisfactory. The patient has a history of coronary artery disease and has had several stents placed in the past including a left main stent that was placed in 2017. The patient also has had a history of renal failure with encephalopathy. He was found to have a stroke by MRI in 2018. The patient also has hypertension and diabetes mellitus. MEDICATIONS: At home include amlodipine, aspirin, clopidogrel, Repatha, hydralazine, insulin, metoprolol, pantoprazole, pirfenidone and Viagra. ALLERGIES: The patient gets muscle aches with ATORVASTATIN and also claims a reaction to LIVALO. The patient has developed renal dysfunction with LOSARTAN. He states that Repatha is too expensive, but it is not clear how that is listed as an allergy. There are other history that includes alcohol abuse, bradycardia, chronic kidney disease stage III, pulmonary fibrosis. FAMILY HISTORY: Significant for coronary artery disease in father. SOCIAL HISTORY: The patient is a former smoker who quit in 1976. Alcohol use, 3 drinks per day. REVIEW OF SYSTEMS: GENERAL: No fever or chills. PULMONARY: No new shortness of breath. [facility] [address] [place] [address] CONSULTATION Name: MILTON BROWN Room #: [facility]#: [id number] Admission: 02/13/20 Attend Phys: Priyank De Leon MD Discharge: Date of : 47 Report #: [id number] CARDIAC: Denies chest pain. Admits to fatigability. VASCULAR: No claudication. GASTROINTESTINAL: No nausea or vomiting. GENITOURINARY: No urgency or frequency. MUSCULOSKELETAL: No bone or joint complaints. SKIN: No rash or infection. NEUROLOGIC: No motor or sensory dysfunction. HEMATOLOGIC: Complains of ecchymoses on arms due to Plavix. ENDOCRINE: No goiter, no tremor. PHYSICAL EXAMINATION: VITAL SIGNS: Blood pressure 160/80, heart rate 50. HEENT: No scleral icterus, no arcus. NECK: No mass, no bruit. CHEST: Clear to auscultation. HEART: Rhythm regular, bradycardic. No murmur. ABDOMEN: Soft. EXTREMITIES: No clubbing, cyanosis or edema, 2+ dorsalis pedis pulses bilaterally. VASCULAR: No obvious saphenous vein problems. MUSCULOSKELETAL: No bone or joint asymmetry or deformity. NEUROLOGIC: No motor or sensory dysfunction. SKIN: Ecchymoses on the forearms. No rash or infection. PSYCHIATRIC: Shows insight into problem and is a pleasant fellow. IMPRESSION: The patient has important 3-vessel coronary artery disease. Risks and details of bypass surgery were discussed. These include but are not limited to bleeding, infection, anesthesia risks, heart and lung problems, stroke and . Options and alternatives were reviewed. The patient will reflect and decide. Thank you for the consult. <ELECTRONICALLY SIGNED> By: Raymundo Chiang MD 02/14/202000 1523 1934 Raymundo Chiang MD /nt
== END | disposition home or self-care (01) ==
LOC: CATH 08:56
PROVIDERS: ATTEND Internal Medicine Cardiovascular Disease
DX: R94.39 Abnormal result of other cardiovascular function study (principal); R06.00 Dyspnea, unspecified; I25.10 Atherosclerotic heart disease of native coronary artery without angina pectoris; I10 Essential (primary) hypertension; I25.2 Old myocardial infarction; E78.00 Pure hypercholesterolemia, unspecified; E78.5 Hyperlipidemia, unspecified; M19.90 Unspecified osteoarthritis, unspecified site; K21.9 Gastro-esophageal reflux disease without esophagitis; Z98.890 Other specified postprocedural states; Z79.899 Other long term (current) drug therapy; Z88.8 Allergy status to other drugs, medicaments and biological substances

== ENCOUNTER 2020-02-22 06:39 | Observation (INO) | payer OTHER, BC ==
[2020-02-22] VITALS (7 sets, daily range): BP systolic 121–160; BP diastolic 57–83
[~2020-02-22] VITALS: Ht 180.3 cm; Wt 96.2 kg
[2020-02-22] MEDS ORDERED: VIAGRA100 MG PO (07:52)
--- NOTE | 2020-02-22 14:41 | CATHLAB ---
[facility] [place] [address] INVASIVE PROCEDURE REPORT Name: MILTON BROWN Yoel Room #: REG [facility]#: [id number] Admission: 02/22/20 Attend Phys: Priyank De Leon MD Discharge: Date of : 47 Report #: [id number] THIS REPORT FOR: cc: Triston Law MD, Alberto MD Park,Priyank Clark MD ~ APPROVED REPORT Study performed: 02/22/2020 07:38:28 Patient Details Patient Status: Out-Patient Room #: The patient is a 74 year-old male Event Personnel Priyank De Leon Associate Financial Analyst, Conchita Madrigal RN RN, Paris Jauregui RTR Monitor, David Varghese RTR Scrub Procedures Performed NICOLASA Place w/wo Plasty Single LAD 841445 NICOLASA Place w/wo Plasty Single RCA 815842 Art Access - R femoral artery* 28983 Initial Mod Sed Same Phys/QHP Gr5y 145583 11310 Mod Sed Same Phys/QHP Ea 682259 Hemostasis w/ Mynx Indication Dyspnea, Positive stress test, The patient underwent a recent cardiac catheterization, found to have severe three-vessel disease. The stent in the left main artery is widely patent. He was referred for surgery. After further discussion, the patient declined surgery. He would only agree with PCI, aware of the increased risk given his complicated cardiac history. Risk Factors Cerebrovascular Disease, HypercholesterolemiaPhysical Activity, Coronary Artery DiseaseHypertension, Diabetes Previous Procedures/Diagnoses Previous CVAPrevious PCI, Previous CT Procedure Narrative The patient was brought electively to the Cardiac Catheterization Laboratory and was prepped and draped in a sterile manner. The Right Groin^ was infiltrated with 1% Lidocaine subcutaneous anesthesia. A 6FR PINNACLE sheath was inserted into the RFA^. Coronary angiography [address] [address] INVASIVE PROCEDURE REPORT Name: KEVINMILTON Yoel Room #: REG [facility]#: [id number] Admission: 02/22/20 Attend Phys: Priyank De Leon MD Discharge: Date of : 47 Report #: [id number] was performed using coronary diagnostic catheters. Closure device was deployed with a Fr MYNXGRIP 6/7F #[id number]. The patient tolerated the procedure well and there were no complications associated with the procedure. There was no hematoma. Intraoperative Conscious Sedation Sedation start time: 8:29 Case end Time: 10:28 Fentanyl 50 mcg Versed 1 mg Fluoro Time: 36.70 minutes Dose: DAP 66087.00 cGycm2 8237 mGy Contrast Type and Amount: Visipaque 410 ml IVUS Intravascular Ultrasound was performed on the mid right coronary artery vessel. Fractional Flow Outlook was performed on the 95 vessel. A 3 Guide Catheter was used to engage the ostium. PCI Technique Lesion Percutaneous coronary intervention was performed on the Ostial/proximal right coronary artery. The lesion stenosis prior to intervention was 80% with BREANNA 3 flow. A VISTA 6FR JR 4 #[id number] Guide Catheter was used to engage the RCA ostium. A Luge Wire .014 x 182CM #[id number] Interventional Guidewire was used to cross the lesion. BALLOON DILATION A Balloon catheter TREK RX 2.25 X 8 was inserted and inflated up to 10.00atm for 13seconds. Additional Inflation: 14atm for 14seconds. Additional Inflation: 16.00atm for 14seconds. STENT DEPLOYMENT A stent RESOLUTE ELIF RX 2.5 X 12 #[id number] was inserted and inflated up to 14.00atm for 19seconds. Additional Inflation: 14.00atm for 18seconds. POST STENT DEPLOYMENT BALLOON DILATION A Balloon catheter Euphora NC RX 3.0 x 12 #[id number] was inserted and inflated up to 18.00atm for 19seconds. Additional Inflation: 20.00atm for 18seconds. Additional Inflation: 20.00atm for 24seconds. Final angiography reveals 5 % stenosis with BREANNA 3 flow. PCI Technique Lesion Percutaneous coronary intervention was performed on the mid right [facility] [address] [place] [address] INVASIVE PROCEDURE REPORT Name: MILTON BROWN Room #: REG CL Claudine#: [id number] Admission: 02/22/20 Attend Phys: Priyank De Leon MD Discharge: Date of : 47 Report #: [id number] coronary artery. The lesion stenosis prior to intervention was 95% with BREANNA 3 flow. STENT DEPLOYMENT A stent RESOLUTE ELIF RX 2.5 X 12 #[id number] was inserted and inflated up to 16.0atm for 22seconds. Additional Inflation: 18.00atm for 11seconds. POST STENT DEPLOYMENT BALLOON DILATION A Balloon catheter Euphora NC RX 2.75 x 12 #[id number] was inserted and inflated up to 18.00atm for 30seconds. Additional Inflation: 14.00atm for 19seconds. Final angiography reveals 0 % stenosis with BREANNA 3 flow. PCI Technique Lesion 2 Percutaneous Coronary Intervention was performed on the mid left anterior descending artery segment. The lesion stenosis prior to intervention was 90% with BREANNA 3 flow. A VISTA 6FR XB 3.5 #[id number] Guide Catheter was used to engage the ostium. A Luge Wire .014 x 182CM #[id number] Interventional Guidewire was used to cross the lesion. Balloon Dilation A Balloon catheter Euphora RX 2.25 x 12 #[id number] was inserted and inflated up to 10.00atm for 11seconds. Additional Inflation: 10.00atm for 8seconds. Stent Deployment A stent RESOLUTE ELIF RX 2.5 X 26 #[id number] was inserted and inflated up to 12.00atm for 23seconds. Post Stent Deployment Balloon Dilation A Balloon catheter Euphora NC RX 2.75 x 12 #[id number] was inserted and inflated up to 18.00atm for 20seconds. Additional Inflation: 18.00atm for 18seconds. Additional Inflation: 14.00atm for 16seconds. ADDITIONAL INFLATION: 14 LEE FOR 18 SECONDS Final angiography reveals 0 % stenosis with BREANNA 3 flow. PCI Technique Lesion Percutaneous coronary intervention was performed on the Ostial/proximal LAD. The lesion stenosis prior to intervention was 80% with BREANNA 3 flow. A VISTA 6FR XB 3.5 #[id number] Guide Catheter was used to engage the LAD ostium. A Luge Wire .014 x 182CM #[id number] Interventional Guidewire was used to cross the lesion. [address] [address] INVASIVE PROCEDURE REPORT Name: MILTON BROWN Room #: REG [facility]#: [id number] Admission: 02/22/20 Attend Phys: Priyank De Leon MD Discharge: Date of : 47 Report #: [id number] STENT DEPLOYMENT A stent RESOLUTE ELIF RX 2.75 X 22 #[id number] was inserted and inflated up to 12.0atm for 29seconds. Additional Inflation: 16.0atm for 11seconds. POST STENT DEPLOYMENT BALLOON DILATION A Balloon catheter Euphora NC RX 2.75 x 12 #[id number] was inserted and inflated up to 16.0atm for 16seconds. Additional Inflation: 20.0atm for 14seconds. Additional Inflation: 20.0atm for 11seconds. Final angiography reveals 0 % stenosis with BREANNA 3 flow. Conclusion 1. Successful insertion of drug-eluting stents into the ostial and mid RCA segments. 2. Successful insertion of drug-eluting stents into the ostial and mid LAD segments. 3. Severe stenosis in OM1, consider staged PCI. 4. Recommend dual antiplatelet therapy and aggressive risk factor management. <ELECTRONICALLY SIGNED> By: Priyank De Leon MD 02/22/20 1440 39 39 Priyank De Leon MD /INF
--- NOTE | 2020-02-22 15:47 | EKG ---
[facility] [place] [address] ELECTROCARDIOGRAM REPORT Name: MILTON BROWN Room #: 217-[facility] M.R.#: [id number] Admission: 02/22/20 Attend Phys: Priyank De Leon MD Discharge: Date of : 47 Report #: [id number] THIS REPORT FOR: cc: Triston Law MD, Alberto MD Couchonnal,Jamie Crespo MD ~ THIS REPORT FOR: //name// [facility] Test Date: 2020-02-22 Test Time: 11:29:22 Pat Name: MILTON BROWN Department: Room: 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 : 1945 Requested By: Priyank De Leon Order Number: [id number] MD: Jamie Schmitz Measurements Intervals Gilbert Rate: 45 P: 49 NE: 246 QRS: -56 QRSD: 112 T: 132 QT: 478 QTc: 414 Interpretive Statements Sinus bradycardia Prolonged NE interval Left anterior fascicular block Abnormal R-wave progression, late transition Compared to ECG 02/14/2020 08:12:16 Electronically Signed On 02-22-2020 15:46:19 CDT by Jamie Schmitz [email or web address] <ELECTRONICALLY SIGNED> By: Jamie Schmitz MD 02/22/20 1546 1129 1129 Jamie Schmitz MD /EPI
--- NOTE | 2020-02-22 17:18 | NUR ---
PT CARE ASSUMED APPROX 1500. ASSESSMENT CHARTED. PT DENIES PAIN AND SOA. HR SLIGHTLY ZINA BUT PT ASYMPTOMATIC. VITAL SIGNS OTHERWISE STABLE. UP WITH STEADY GAIT. RIGHT GROIN POST CATH SITE C/D/I. PT CAME RECOVERED SO POST CATH INTERVENTION WAS CONTINUED NOT INITIATED. PT TOLERATING POC. NO DISTRESS NOTED.
--- NOTE | 2020-02-22 19:53 | NUR ---
1830 PT ON UNIT AT THIS TIME. DENIES ANY CHEST PAIN AT THIS TIME. NO SOB. RIGHT GROIN IS C,D, I NO HEMATOMA OBSERVED ON EITHER GROIN. PEDAL PULSES ARE 1+ BILATERALLY WELL. LEGS WARM TO TOUCH, NO MOTTLING.
--- NOTE | 2020-02-23 03:25 | NUR ---
ASSUMED CARE OF PATIENT AT APPROXIMATELY 1999. PATIENT REQUESTED SLEEP AID AT . ADMINISTERED AMBIEN ORDERED. PATIENT STATED THE MEDICATION MADE HIM SLEEPY HOWEVER PATIENT WAS AWAKE MAJORITY OF NIGHT. AROUND 0300 NURSE TECH REPORTED THAT THE PATIENT HAD DRESSED HIMSELF AND PULLED HIS IV OUT. PATIENT STATED THAT HE WAS READY TO GO HOME. PATIENT IS TENTATIVELY SCHEDULED TO D/C TODAY.
[2020-02-23 03:59] VITALS: BP 156/89
[2020-02-23 05:21] LABS: ALBUMIN 3.3 g/dL (3.4-5.0); CALCIUM 8.9 mg/dL (8.5-10.1); CREATININE 1.3 mg/dL (0.7-1.3); POTASSIUM 3.8 mmol/L (3.5-5.1); TOTAL BILIRUBIN 0.3 mg/dL (0.2-1.0); TOTAL PROTEIN 6.7 g/dL (6.4-8.2)
[2020-02-23 05:44] LABS: HEMATOCRIT 40.1 % (42.0-52.0); HEMOGLOBIN 13.7 gm/dL (14.0-18.0); MCH 32.5 pg (26.0-34.0); MCHC 34.2 g/dL (28.0-37.0); MCV 95.1 fL (80.0-100.0); RBC 4.22 mil/uL (4.50-6.00); RDW 13.2 % (10.5-14.5); WBC 6.5 thou/uL (4.0-11.0)
[2020-02-23 07:22] VITALS: BP 158/94
[2020-02-23 07:36] VITALS: BP 179/87
[2020-02-23 09:13] VITALS: BP 179/87
--- NOTE | 2020-02-23 10:04 | NUR ---
PT CARE ASSUMED APPROX 0700. ASSESSMENT CHARTED. PT DENIES PAIN AND SOA. VSS. DISCHARGED AT THIS TIME. EDUCATION COMPLETED WITH PT AND SPOUSE WITH DR GONZALES. EDUCATION REINFORCED BY THIS NURSE. PT AND SPOUSE DENY QUESTIONS OR CONCERNS REGARDING POST HOSPITAL CARES. PT REMOVED HIS IV HIMSELF PRIOR TO THIS NURSE ASSUMING CARE. TELE OFF. PT ESCORTED OUT VIA WHEELCHAIR BY NURSING STAFF.
--- NOTE | 2020-02-23 16:44 | EKG ---
[facility] [place] [address] ELECTROCARDIOGRAM REPORT Name: MILTON BROWN Room #: [facility] M.R.#: [id number] Admission: 02/22/20 Attend Phys: Priyank De Leon MD Discharge: 02/23/20 Date of : 47 Report #: [id number] THIS REPORT FOR: cc: Triston Law MD, Alberto MD Lundgren,Jesse Sadler MD [facility] ~ THIS REPORT FOR: //name// [facility] Test Date: 2020-02-23 Test Time: 07:42:23 Pat Name: MILTON BROWN Department: Room: [facility] 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 : 1945 Requested By: Priyank De Leon Order Number: [id number] MD: Jesse Paulson Measurements Intervals [place] Rate: 58 P: 0 NM: 77 QRS: -65 QRSD: 110 T: 105 QT: 420 QTc: 413 Interpretive Statements Sinus rhythm Left anterior fascicular block Poor R wave progression Nonspecific T wave abnormality Artifact in lead(s) I,II,III,aVR,aVL,aVF Compared to ECG 02/22/2020 11:29:22 T wave abnormality is less pronounced Electronically Signed On 02-23-2020 16:44:02 CDT by Jesse Paulson [email or web address] <ELECTRONICALLY SIGNED> By: Jesse Paulson MD, [facility] 02/23/20 1644 0742 Jesse Paulson MD, [facility] /EPI
== END 2020-02-23 10:00 | disposition home or self-care (01) ==
LOC: CATH 06:39 → 2N 14:48
PROVIDERS: ADMIT Internal Medicine Cardiovascular Disease; ATTEND Internal Medicine Cardiovascular Disease
DX: I25.110 Atherosclerotic heart disease of native coronary artery with unstable angina pectoris (principal); I10 Essential (primary) hypertension; E78.00 Pure hypercholesterolemia, unspecified; E11.9 Type 2 diabetes mellitus without complications

== ENCOUNTER → 2020-02-27 | Outpatient (CLI) | payer OTHER, BC | LOC: SJCVC 10:12 | PROVIDERS: ATTEND Internal Medicine Cardiovascular Disease | DX: I25.10 Atherosclerotic heart disease of native coronary artery without angina pectoris (principal) ==

== ENCOUNTER → 2020-02-29 | Outpatient (CLI) | payer OTHER, BC | LOC: SJCVC 11:18 | PROVIDERS: ATTEND Internal Medicine Cardiovascular Disease | DX: I45.2 Bifascicular block (principal); R00.1 Bradycardia, unspecified; R94.31 Abnormal electrocardiogram [ECG] [EKG]; I25.10 Atherosclerotic heart disease of native coronary artery without angina pectoris; I12.9 Hypertensive chronic kidney disease with stage 1 through stage 4 chronic kidney disease, or unspecified chronic kidney disease; E11.22 Type 2 diabetes mellitus with diabetic chronic kidney disease; N18.3 Chronic kidney disease, stage 3 (moderate); I25.2 Old myocardial infarction; E78.00 Pure hypercholesterolemia, unspecified; R60.9 Edema, unspecified; Z79.4 Long term (current) use of insulin; Z79.82 Long term (current) use of aspirin; Z79.899 Other long term (current) drug therapy; Z87.891 Personal history of nicotine dependence; Z82.49 Family history of ischemic heart disease and other diseases of the circulatory system ==

== ENCOUNTER 2020-03-19 06:25 | Outpatient (CLI) | payer OTHER, BC ==
[~2020-03-19] VITALS: Ht 180.3 cm; Wt 94.8 kg
[2020-03-19 07:12] VITALS: BP 135/70
[2020-03-19 07:19] LABS: HEMATOCRIT 41.1 % (42.0-52.0); HEMOGLOBIN 14.2 gm/dL (14.0-18.0); MCH 32.7 pg (26.0-34.0); MCHC 34.5 g/dL (28.0-37.0); MCV 94.9 fL (80.0-100.0); RBC 4.33 mil/uL (4.50-6.00); RDW 13.1 % (10.5-14.5); WBC 5.9 thou/uL (4.0-11.0)
[2020-03-19 07:28] LABS: CALCIUM 8.8 mg/dL (8.5-10.1); CREATININE 1.5 mg/dL (0.7-1.3); POTASSIUM 4.2 mmol/L (3.5-5.1)
--- NOTE | 2020-03-19 08:33 | EKG ---
[facility] [place] [address] ELECTROCARDIOGRAM REPORT Name: MILTON BROWN Room #: REG [facility]#: [id number] Admission: 03/19/20 Attend Phys: Priyank De Leon MD Discharge: Date of : 47 Report #: [id number] THIS REPORT FOR: cc: Triston Law MD, Alberto MD Lundgren,Jesse Sadler MD [facility] ~ THIS REPORT FOR: //name// 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[facility] : 1945 Requested By: Priyank De Leon Order Number: [id number] MD: Jesse Paulson Measurements Intervals [place] Rate: 50 P: 31 MA: 225 QRS: -53 QRSD: 111 T: 121 QT: 437 QTc: 399 Interpretive Statements Sinus bradycardia Prolonged [place] interval Left anterior fascicular block Poor R wave progression Abnormal T, consider ischemia, lateral leads Compared to ECG 02/23/2020 07:42:23 No significant change was found Electronically Signed On 03-19-2020 8:33:26 CDT by Jesse Paulson [email or web address] <ELECTRONICALLY SIGNED> By: Jesse Paulson MD, [facility] 03/19/20 0833 Jesse Paulson MD, [facility] /EPI
--- NOTE | 2020-03-19 14:23 | EKG ---
[facility] [place] [address] ELECTROCARDIOGRAM REPORT Name: MILTON BROWN Room #: REG [facility]#: [id number] Admission: 03/19/20 Attend Phys: Priyank De Leon MD Discharge: Date of : 47 Report #: [id number] THIS REPORT FOR: cc: Triston Law MD, Alberto MD Couchonnal,Jamie Crespo MD ~ THIS REPORT FOR: //name// [facility] Test Date: 2020-03-19 Test Time: 13:58:16 Pat Name: MLITON BROWN Department: Room: Gender: Gray Tender: Stefanie CALABRESE : 1945 Requested By: Priyank De Leon Order Number: [id number] : Jamie Schmitz Measurements Intervals [place] Rate: 58 P: 24 NJ: 243 QRS: -62 QRSD: 117 T: 105 QT: 441 QTc: 434 Interpretive Statements Sinus rhythm Atrial premature complex Prolonged [place] interval Left anterior fascicular block Nonspecific T abnormalities, lateral leads Compared to ECG 03/19/2020 07:34:56 Atrial premature complex(es) now present Sinus bradycardia no longer present Poor R-wave progression no longer present Possible ischemia no longer present T-wave abnormality still present Electronically Signed On 03-19-2020 14:23:25 CDT by Jamie Schmitz [email or web address] <ELECTRONICALLY SIGNED> By: Jamie Schmitz MD 03/19/20 1423 1358 1358 Jamie Schmitz MD /EPI
--- NOTE | 2020-03-19 16:35 | CATHLAB ---
[facility] [address] [place] [address] INVASIVE PROCEDURE REPORT Name: MILTON BROWN Room #: REG [facility]#: [id number] Admission: 03/19/20 Attend Phys: Priyank De Leon MD Discharge: Date of : 47 Report #: [id number] THIS REPORT FOR: cc: Triston Law MD, Alberto MD Park, Jin S. MD ~ APPROVED REPORT Study performed: 03/19/2020 09:44:44 Patient Details The patient is a 74 year-old male Event Personnel Priyank De Leon Flexographic Press Set Up Operator, Gulshan Arnett RTR Monitor, David Varghese RTR Monitor, Renetta Tarango RT(R)() Avelina Antonio Lauren RN finishing pan operator Performed Art Access - L femoral artery* NICOLASA Place w/wo Plasty Single CIRC [id number] Initial Mod Sed Same Phys/QHP Gr5y 137108 75344 Mod Sed Same Phys/QHP Ea 372303 Hemostasis w/ Mynx Indication Chest pain, The patient has a history of three-vessel coronary artery disease, surgery was initially recommended. However, the patient declined. Recently underwent PCI with stent placement to the RCA and LAD. He now returns for staged PCI involving a moderate size left circumflex/OM1 vessel. Risk Factors Cerebrovascular Disease, HypercholesterolemiaPhysical Activity, Coronary Artery DiseaseHypertension, Diabetes Previous Procedures/Diagnoses Previous CVAPrevious PCI, Previous CT Procedure Narrative The Left Groin^ was infiltrated with 1% Lidocaine subcutaneous anesthesia. A PINNACLE 6FR Sheath #[id number] sheath was inserted into the LFA^. Coronary angiography was performed using coronary diagnostic catheters. Pre-demployment femoral angiogram was performed . Closure device was deployed with a 6 Fr MYNXGRIP 6/7F #[id number]. The patient tolerated the procedure well and there were no complications [facility] [place] [address] INVASIVE PROCEDURE REPORT Name: MILTON BROWN Room #: REG [facility]#: [id number] Admission: 03/19/20 Attend Phys: Priyank De Leon MD Discharge: Date of : 47 Report #: [id number] associated with the procedure. A hematoma occurred. Intraoperative Conscious Sedation Sedation start time: 1221 Case end Time: 1335 Fentanyl 200 mcg Versed 2 mg Fluoro Time: 8.80 minutes Dose: DAP 96775.30 cGycm2 3284 mGy Contrast Type and Amount: Visipaque 220 ml Coronary Angiography The patient's coronary anatomy is co- dominant. Diagnostic Cath Circumflex There is a severe stenosis in the proximal left circumflex/ostial OM1. Hemodynamics The aortic pressure is 168/79 mmHg with a mean of 108 mmHg. PCI Technique Lesion Percutaneous coronary intervention was performed on the proximal LCx/ostial OM1 segment. The lesion stenosis prior to intervention was 90% with BREANNA 3 flow. A VISTA 6FR XB 3.5 #[id number] Guide Catheter was used to engage the ostium. A Luge Wire .014 x 182CM #[id number] Interventional Guidewire was used to cross the lesion. BALLOON DILATION A Balloon catheter TREK NC RX 2.5 X 8 #[id number] was inserted and inflated up to 14.00atm for 38seconds. STENT DEPLOYMENT A drug-eluting stent RESOLUTE ELIF RX 3.0 X 8 #[id number] was inserted and inflated up to 16.00atm for 25seconds. Final angiography reveals 0 % stenosis with BREANNA 3 flow. Conclusion 1. Successful insertion of a drug-eluting stent into the proximal left circumflex/ostial OM1 segment. [address] [address] INVASIVE PROCEDURE REPORT Name: MILTON BROWN Room #: REG [facility]#: [id number] Admission: 03/19/20 Attend Phys: Priyank De Leon MD Discharge: Date of : 47 Report #: [id number] 2. Recommend dual antiplatelet therapy and aggressive risk factor management. <ELECTRONICALLY SIGNED> By: Priyank De Leon MD 03/19/20 1635 1635 1635 Priyank De Leon MD /INF
[2020-03-19 17:30] VITALS: BP 146/84
--- NOTE | 2020-03-19 18:51 | NUR ---
ASSUMED CARE OF PT AT APPROX 1430 FROM HYDROELECTRIC MACHINERY MECHANIC HELPER. BEDREST WAS COMPLETE IN HYDROELECTRIC MACHINERY MECHANIC HELPER. LEFT GROIN SITE WAS CDI. PT A BIT UNSTEADY ON FEET, SO FALL PRECAUTIONS IN PLACE. AT BEDSIDE. ADMISSION ORDERS AND INSTRUCTIONS ARE COMPLETE. NO C/O PAIN, MEDS GIVEN PER MAR. WILL CONTINUE TO MONITOR.
[2020-03-19 19:30] VITALS: BP 137/73
[2020-03-20 00:30] VITALS: BP 142/72
[2020-03-20 00:50] VITALS: BP 142/72
[2020-03-20 04:25] VITALS: BP 127/57
--- NOTE | 2020-03-20 06:00 | NUR ---
SLEPT MOST OF SHIFT. UP AD DONY. DENIES COMPLAINTS OF PAIN. WORKING ON GOALS AND PLAN OF CARE FOR NOC. SEE INTERVENTION FOR CATH CHECKS. PROGRESSING TOWARDS DISCHARGE GOALS. CONTINUE TO ASSES.
[2020-03-20 06:06] LABS: HEMATOCRIT 39.4 % (42.0-52.0); HEMOGLOBIN 13.3 gm/dL (14.0-18.0); MCH 32.2 pg (26.0-34.0); MCHC 33.8 g/dL (28.0-37.0); MCV 95.4 fL (80.0-100.0); RBC 4.13 mil/uL (4.50-6.00); RDW 13.1 % (10.5-14.5)
[2020-03-20 06:31] LABS: ALBUMIN 3.2 g/dL (3.4-5.0); CALCIUM 8.6 mg/dL (8.5-10.1); CREATININE 1.3 mg/dL (0.7-1.3); POTASSIUM 4.1 mmol/L (3.5-5.1); TOTAL BILIRUBIN 0.3 mg/dL (0.2-1.0); TOTAL PROTEIN 6.4 g/dL (6.4-8.2)
[2020-03-20 08:15] VITALS: BP 164/75
[2020-03-20 08:36] VITALS: BP 164/75
--- NOTE | 2020-03-20 08:54 | EKG ---
[facility] [place] [address] ELECTROCARDIOGRAM REPORT Name: MILTON BROWN Room #: 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[employer] : 1945 Requested By: Priyank De Leon Order Number: [id number] MD: Jesse Paulson Measurements Intervals [place] Rate: 52 P: 30 VT: 236 QRS: -68 QRSD: 113 T: 119 QT: 440 QTc: 410 Interpretive Statements Sinus rhythm Prolonged [place] interval Left anterior fascicular block Abnormal R-wave progression, late transition Nonspecific T wave abnormality Baseline wander in lead(s) V3 Compared to ECG 03/19/2020 13:58:16 No significant change was found Electronically Signed On 03-20-2020 8:53:56 CDT by Jesse Paulson [email or web address] <ELECTRONICALLY SIGNED> By: Jesse Paulson MD, [facility] 03/20/20 0853 3 3 Jesse Paulson MD, [facility] /EPI
--- NOTE | 2020-03-20 09:32 | NUR ---
ASSUMED CARE AT SHIFT CHANGE, ALERT AND ORIENTED X4. MORNING MEDS GIVEN, AND ASSESSMENT DOCUMNETED. DISCHARGE,MEDICATION INSTRUCTION GIVEN TO AND HIS SPOUSE, AND VERBALIZED UNDERSATING. PATIENT DISCHARGED HOME.
--- NOTE | 2020-03-20 10:36 | NUR ---
SPIRITUAL CARE CONSULT [phone] WAS UNABLE TO BE COMPLETED TODAY, PATIENT AND FAMILY MEMBER WERE VISITED PRESURGERY YESTERDAY MARCH 19, 2020 PRIOR TO 0800 HOURS IN HAT CUTTER BY THIS MEAT WRAPPER.
== END 2020-03-20 09:37 | disposition home or self-care (01) ==
LOC: CATH 06:25 → 2N 17:31 → CATH 03-20 09:37
PROVIDERS: ATTEND Internal Medicine Cardiovascular Disease
DX: R07.9 Chest pain, unspecified (principal); I25.10 Atherosclerotic heart disease of native coronary artery without angina pectoris; I10 Essential (primary) hypertension; E11.9 Type 2 diabetes mellitus without complications; E78.00 Pure hypercholesterolemia, unspecified; M19.90 Unspecified osteoarthritis, unspecified site; K21.9 Gastro-esophageal reflux disease without esophagitis; Z98.890 Other specified postprocedural states; Z79.899 Other long term (current) drug therapy; Z86.73 Personal history of transient ischemic attack (TIA), and cerebral infarction without residual deficits; Z79.4 Long term (current) use of insulin; Z82.49 Family history of ischemic heart disease and other diseases of the circulatory system
CPT/HCPCS: 10081

== ENCOUNTER → 2020-04-03 | Outpatient (CLI) | payer OTHER, BC | LOC: SJCVC 10:38 | PROVIDERS: ATTEND Internal Medicine Cardiovascular Disease | DX: I45.2 Bifascicular block (principal); R94.31 Abnormal electrocardiogram [ECG] [EKG]; I25.10 Atherosclerotic heart disease of native coronary artery without angina pectoris; E78.00 Pure hypercholesterolemia, unspecified; R60.9 Edema, unspecified; I12.9 Hypertensive chronic kidney disease with stage 1 through stage 4 chronic kidney disease, or unspecified chronic kidney disease; E11.22 Type 2 diabetes mellitus with diabetic chronic kidney disease; N18.3 Chronic kidney disease, stage 3 (moderate); E78.5 Hyperlipidemia, unspecified; I25.2 Old myocardial infarction; Z82.49 Family history of ischemic heart disease and other diseases of the circulatory system; Z79.899 Other long term (current) drug therapy; Z79.82 Long term (current) use of aspirin; Z87.891 Personal history of nicotine dependence ==

== ENCOUNTER → 2020-07-04 | Outpatient (CLI) | payer OTHER, BC | LOC: SJCVC 13:02 | PROVIDERS: ATTEND Internal Medicine Cardiovascular Disease | DX: I25.10 Atherosclerotic heart disease of native coronary artery without angina pectoris (principal); R94.31 Abnormal electrocardiogram [ECG] [EKG]; I45.2 Bifascicular block; I49.49 Other premature depolarization; E78.00 Pure hypercholesterolemia, unspecified; I12.9 Hypertensive chronic kidney disease with stage 1 through stage 4 chronic kidney disease, or unspecified chronic kidney disease; N18.30 Chronic kidney disease, stage 3 unspecified; Z79.899 Other long term (current) drug therapy; Z87.891 Personal history of nicotine dependence ==

== ENCOUNTER → 2020-07-11 | Outpatient (CLI) | payer OTHER, BC | LOC: RAD 11:42 | PROVIDERS: ATTEND Internal Medicine Pulmonary Disease | DX: R06.02 Shortness of breath (principal) ==

== ENCOUNTER → 2020-10-26 | Outpatient (CLI) | payer OTHER, BC | LOC: SJCVCIMAG 10-09 09:00 | PROVIDERS: ATTEND Internal Medicine Cardiovascular Disease | DX: I35.8 Other nonrheumatic aortic valve disorders (principal); I49.1 Atrial premature depolarization; I45.2 Bifascicular block; R94.31 Abnormal electrocardiogram [ECG] [EKG]; I25.10 Atherosclerotic heart disease of native coronary artery without angina pectoris; E78.00 Pure hypercholesterolemia, unspecified; E78.1 Pure hyperglyceridemia; R60.9 Edema, unspecified; R42 Dizziness and giddiness; E11.22 Type 2 diabetes mellitus with diabetic chronic kidney disease; I12.9 Hypertensive chronic kidney disease with stage 1 through stage 4 chronic kidney disease, or unspecified chronic kidney disease; N18.30 Chronic kidney disease, stage 3 unspecified; E78.5 Hyperlipidemia, unspecified; I25.2 Old myocardial infarction; Z98.61 Coronary angioplasty status; Z88.8 Allergy status to other drugs, medicaments and biological substances; Z79.82 Long term (current) use of aspirin; Z79.4 Long term (current) use of insulin; Z79.899 Other long term (current) drug therapy; Z86.73 Personal history of transient ischemic attack (TIA), and cerebral infarction without residual deficits; Z87.891 Personal history of nicotine dependence; Z82.49 Family history of ischemic heart disease and other diseases of the circulatory system ==

== ENCOUNTER → 2021-04-25 | Outpatient (CLI) | payer OTHER, BC | LOC: SJCVCIMAG 08:47 | PROVIDERS: ATTEND Internal Medicine Cardiovascular Disease | DX: R94.31 Abnormal electrocardiogram [ECG] [EKG] (principal); I45.2 Bifascicular block; I44.0 Atrioventricular block, first degree; I25.10 Atherosclerotic heart disease of native coronary artery without angina pectoris; I10 Essential (primary) hypertension; E78.00 Pure hypercholesterolemia, unspecified; R60.9 Edema, unspecified; E11.9 Type 2 diabetes mellitus without complications; E78.5 Hyperlipidemia, unspecified; R00.1 Bradycardia, unspecified; Z79.899 Other long term (current) drug therapy; Z79.82 Long term (current) use of aspirin; Z87.891 Personal history of nicotine dependence; Z72.89 Other problems related to lifestyle; Z79.4 Long term (current) use of insulin; Z88.1 Allergy status to other antibiotic agents; Z88.8 Allergy status to other drugs, medicaments and biological substances ==

== ENCOUNTER → 2021-08-22 | Outpatient (CLI) | payer OTHER, BC | LOC: RAD 12:04 | PROVIDERS: ATTEND Internal Medicine Pulmonary Disease | DX: R06.02 Shortness of breath (principal) ==

== ENCOUNTER → 2021-10-09 | Outpatient (CLI) | payer OTHER, BC | LOC: SJCVC 11:05 | PROVIDERS: ATTEND Internal Medicine Cardiovascular Disease | DX: R94.31 Abnormal electrocardiogram [ECG] [EKG] (principal); I44.0 Atrioventricular block, first degree; I44.4 Left anterior fascicular block; I25.10 Atherosclerotic heart disease of native coronary artery without angina pectoris; I10 Essential (primary) hypertension; E78.00 Pure hypercholesterolemia, unspecified; R00.1 Bradycardia, unspecified; R42 Dizziness and giddiness; R60.9 Edema, unspecified; E11.9 Type 2 diabetes mellitus without complications; G45.9 Transient cerebral ischemic attack, unspecified; Z88.8 Allergy status to other drugs, medicaments and biological substances; Z88.1 Allergy status to other antibiotic agents; Z79.82 Long term (current) use of aspirin; Z79.899 Other long term (current) drug therapy ==